=== PATIENT | female | born 1970 | race Caucasian/White ===

== ENCOUNTER 2022-07-24 11:43 | Outpatient (CLI) | payer OTHER, SELFPAY ==
[2022-07-24 15:20] LABS: Cholesterol* 244 mg/dL (90-199); HDL Cholesterol* 77 mg/dL (>=50); LDL Cholesterol Calculated 150 mg/dL (<100); Triglycerides* 86 mg/dL (40-149)
== END 2022-07-24 11:44 | disposition home or self-care (01) ==
PROVIDERS: PCP Family Medicine; Visit Provider Family Medicine
DX: E78.00 Pure hypercholesterolemia, unspecified (principal)
CPT/HCPCS: 80061

== ENCOUNTER 2022-11-12 10:24 | Outpatient (CLI) | payer OTHER, SELFPAY ==
[2022-11-12 14:56] LABS: Albumin* 4.2 g/dL (3.3-5.0)
[2022-11-12 14:57] LABS: Chloride* 108 mmol/L (96-114); Potassium* 4.1 mmol/L (3.6-5.1); Sodium* 138 mmol/L (135-149)
[2022-11-12 14:59] LABS: Alkaline Phosphatase* 84 U/L (40-150); Aspartate Amino Transferase* 19 U/L (12-35); Bilirubin Total* 0.6 mg/dL (0.1-1.5); Carbon Dioxide* 24 mmol/L (20-32); Cholesterol* 230 mg/dL (90-199); Creatinine* 0.8 mg/dL (0.5-1.5); Estimated Glomerular Filt Rate 89 ml/min
[2022-11-12 15:00] LABS: Alanine Aminotransferase* 23 U/L (4-35); Blood Urea Nitrogen* 11 mg/dL (7-30); Calcium* 9.3 mg/dL (8.4-10.6); Glucose* 97 mg/dL (60-115); HDL Cholesterol* 69 mg/dL (>=50); LDL Cholesterol Calculated 134 mg/dL (<100); Triglycerides* 135 mg/dL (40-149)
== END 2022-11-12 10:25 | disposition home or self-care (01) ==
PROVIDERS: PCP Family Medicine; Visit Provider Family Medicine
DX: E78.00 Pure hypercholesterolemia, unspecified (principal); F32.A Depression, unspecified; K21.9 Gastro-esophageal reflux disease without esophagitis; F41.9 Anxiety disorder, unspecified
CPT/HCPCS: 80053; 80061

== ENCOUNTER 2023-02-13 09:09 | Outpatient (CLI) | payer OTHER, SELFPAY | END 2023-02-13 09:10 | disposition home or self-care (01) | LOC: NFLDREF 02-15 04:38 | PROVIDERS: PCP Family Medicine; Referring Provider Family Medicine; Visit Provider Family Medicine | DX: E78.00 Pure hypercholesterolemia, unspecified (principal) | CPT/HCPCS: 80061; 80076 ==

== ENCOUNTER 2023-06-27 08:08 | Outpatient (CLI) | payer OTHER, SELFPAY | END 2023-06-27 08:09 | disposition home or self-care (01) | LOC: NFLDREF 06-28 06:58 | PROVIDERS: PCP Family Medicine; Referring Provider Family Medicine; Visit Provider Family Medicine | DX: E78.00 Pure hypercholesterolemia, unspecified (principal) | CPT/HCPCS: 80061 ==

== ENCOUNTER 2023-07-09 13:19 | Outpatient (CLI) | payer OTHER, SELFPAY | END 2023-07-09 13:20 | disposition home or self-care (01) | PROVIDERS: PCP Family Medicine; Visit Provider Family Medicine | DX: C91.00 Acute lymphoblastic leukemia not having achieved remission (principal); R79.89 Other specified abnormal findings of blood chemistry; Z01.818 Encounter for other preprocedural examination | CPT/HCPCS: 80048; 86769 ==

== ENCOUNTER 2023-09-09 09:18 | Outpatient (CLI) | payer OTHER, SELFPAY | END 2023-09-09 09:19 | disposition home or self-care (01) | LOC: NFLDREF 09-13 12:03 | PROVIDERS: PCP Family Medicine; Referring Provider Family Medicine; Visit Provider Family Medicine | DX: Z00.00 Encounter for general adult medical examination without abnormal findings (principal); E78.00 Pure hypercholesterolemia, unspecified; R79.89 Other specified abnormal findings of blood chemistry; F98.8 Other specified behavioral and emotional disorders with onset usually occurring in childhood and adolescence | CPT/HCPCS: 80053; 80061 ==

== ENCOUNTER 2024-02-25 08:10 | Outpatient (CLI) | payer OTHER, SELFPAY ==
--- OUTSIDE RECORDS SUMMARY | 2024-02-28 11:20 | XMS_ITS | Encounter Summary ---
Author Name Unknown Organization [place] Address [address] [place] [address]. [place] [address] Care Team Providers Care Ticket Chopper Assembler Name Role Phone [facility]- Primary Care Provider Merlin Valdez OD Unavailable [phone] Zhanna Frances MD Unavailable [phone] Reason for Visit * Reason Onset Date Comments medication set up 08/21/2021 Aubagio Encounter Details Date Type Department Care Team (Late st Contact Info) Description 08/21/2021 [facility] Medical Advice [facility] Multiple Sclerosis [address] [address] Zhanna Frances MD [address] [address] medication set up (Aubagio) Social History Tobacco Use Types Packs/Day Years Used Date Smoking Tobacco: Never Smokeless Tobacco: Never Alcohol Use Standard Drinks/Week Comments Yes 0 (1 standard drink = 0.6 oz pur e alcohol) 3 drinks per week PHQ-2 Answer Date Recorded PHQ-2 Score 0 06/15/2021 Sex and Gender Information Value Date Recorded Sex Assigned at Female 07/27/2021 9:16 AM CDT Gender Identity Female 07/27/2021 9:16 AM CDT Sexual Orientation Straight 07/27/2021 9: 16 AM CDT COVID-19 Exposure Response Date Recorded In the last month, have you been in contact with someone who was confirmed or suspected to have Coronavirus / COVID-19? No / Unsure 07/26/2021 3:43 PM CDT documented as of this encounter Miscellaneous Notes * Telephone Encounter - Clarice Horton RN - 08/21/2021 1:58 PM CDT Sasha sent a my chart message inquiring about Aubagio. Per 08/03 virtual visit, Dr. Frances recommended Sasha begin Aubagio. Sent Sasha a my chart asking if start form could be emailed to her. Clarice Horton RN documented in this encounter Plan of Treatment Not on file documented as of this encounter Visit Diagnoses Not on filedocumented in this encounter Care Teams Ticket Chopper Assembler Relationship Specialty Start Date End Date [facility]- [address] [place] [address] PCP - General 06/01/20 Merlin Valdez OD [address] [place] [address] Optometry 01/25/21 Zhanna Frances MD [address] [place] [address] Assigned Neuroscience Provider 06/25/21 02/01/23 documented as of this encounter
--- OUTSIDE RECORDS SUMMARY | 2024-02-28 11:20 | XMS_ITS | Encounter Summary ---
Author Name Unknown Organization [place] Address [address] [place] [address]. [place] [address] Care Team Providers Care Hot Sealing Machine Operator Name Role Phone [facility]- Primary Care Provider Merlin Valdez OD Unavailable [phone] Zhanna Frances MD Unavailable [phone] Reason for Visit * Reason Onset Date Comments Appointment 06/09/2021 Encounter Details Date Type Department Care Team (Late st Contact Info) Description 06/09/2021 Telephone [facility] [address] [place] [address] None Appointment Social History Tobacco Use Types Packs/Day Years Used Date Smoking Tobacco: Never Alcohol Use Standard Drinks/Week Comments Yes 0 (1 standard drink = 0.6 oz pur e alcohol) 3 drinks per week Sex and Gender Information Value Date Recorded Sex Assigned at Female 07/27/2021 9:16 AM CDT Gender Identity Female 07/27/2021 9:16 AM CDT Sexual Orientation Straight 07/27/2021 9: 16 AM CDT documented as of this encounter Miscellaneous Notes * Telephone Encounter - Waleska Wallace MA - 06/13/2021 8:22 AM CDT Scheduled patient for virtual visit on 06/15/2021 at 11am Waleska Wallace MA * Telephone Encounter - Cecilia Warner - 06/09/2021 12:35 PM CDT [facility] Call Center Phone Message May a detailed message be left on voicemail: yes Reason for Call: Appointment Intake Referring Provider Name: Dr. Ceferino Dougherty from [facility]- Diagnosis and/or Symptoms: Abnormal Brain- Patient is being referred to see Dr. Zhanna Frances to rule out MS. Dr. Dougherty requires a 2nd opinion to diagnosis patient with MS. All imaging/records are at [facility] and patient also has copy for records/images. Requires clinic review because dx on protocols. Action Taken: Message routed to: [facility] MS Travel Screening: Not Applicable documented in this encounter Plan of Treatment Not on file documented as of this encounter Visit Diagnoses Not on filedocumented in this encounter Care Teams Hot Sealing Machine Operator Relationship Specialty Start Date End Date [facility]- [address] [place] [address] PCP - General 06/01/20 Merlin Valdez OD [address] [place] [address] Optometry 01/25/21 Zhanna Frances MD [address] [place] [address] Assigned Neuroscience Provider 06/25/21 02/01/23 documented as of this encounter
--- OUTSIDE RECORDS SUMMARY | 2024-02-28 11:20 | XMS_ITS | Clinical Summary ---
Author Name Unknown Organization [employer] [facility] Address [place], [place] [address] Care Team Providers Care Application Packager Name Role Phone Joni Sousa MD Primary Care Provider Allergies Active Allergy Reactions Criticality Noted Date Comments Codeine Nausea And Vomiting 06/26/2010 Medications Medication Sig Dispensed Refills Start Date End Date Status buPROPion SR (WELLBUTRIN SR) 150 mg tablet Take 150 mg by mouth once daily. Active oxycodone-acetami nophen, 5-325 mg, (PERCOCET 5-325) 5-325 mg per tablet Take 1-2 tablets by mouth every 4 hours if needed for Pain. For moderate to severe pain. Max acetaminophen dose: 4000mg in 24 hrs. 30 tablet 0 06/28/2010 Active ibuprofen (ADVIL; MOTRIN) 600 mg tablet Take 1 tablet by mouth every 6 hours. Maximum of 3200 mg in 24 hours. 30 tablet 0 06/28/2010 Active azithromycin (ZITHROMAX) 250 mg tablet Take 2 tabs by mouth on day 1, then take 1 tab daily for 4 days 6 tablet 10/08/2012 Active escitalopram (LEXAPRO) 10 mg tablet Take 1 tablet by mouth once daily. 60 tablet 1 10/08/2012 Active fluconazole (DIFLUCAN) 150 mg tablet Take 1 tablet by mouth one time for 1 dose. 1 tablet 1 10/08/2012 Active lisdexamfetamine (VYVANSE) 30 mg capsule Take 1 capsule by mouth once daily. 30 capsule 01/07/2013 Active ALPRAZolam (XANAX) 0.5 mg tablet Take 0.5-1 tablets by mouth as needed for flying. 6 tablet 01/07/2013 Active lisdexamfetamine (VYVANSE) 30 mg capsule Take 1 capsule by mouth once daily. 30 capsule 02/03/2013 Active lisdexamfetamine (VYVANSE) 30 mg capsule Take 1 capsule by mouth once daily. 30 capsule 03/18/2013 Active buPROPion (WELLBUTRIN SR; ZYBAN) 150 mg Sustained-Release tablet Take 1 tablet by mouth once daily. 90 tablet 04/24/2013 Active escitalopram (LEXAPRO) 10 mg tablet Take 1 tablet by mouth once daily. 30 tablet 1 04/28/2013 Active buPROPion 75 mg tablet Take 1 tablet by mouth once daily. 30 tablet 05/13/2013 Active escitalopram (LEXAPRO) 10 mg tablet Take 1 tablet by mouth once daily. 30 tablet 05/25/2013 Active buPROPion (WELLBUTRIN SR) 150 mg Sustained-Release tablet Take 1 tablet by mouth once daily. 30 tablet 05/25/2013 Active escitalopram (LEXAPRO) 10 mg tablet Take 1 tablet by mouth once daily. 30 tablet 06/30/2013 Active buPROPion (WELLBUTRIN SR; ZYBAN) 150 mg Sustained-Release tablet Take 1 tablet by mouth once daily. 30 tablet 06/30/2013 Active buPROPion (WELLBUTRIN SR) 100 mg Sustained-Release tablet Take 1 tablet by mouth once daily. 30 tablet 07/07/2013 Active buPROPion (WELLBUTRIN SR) 100 mg Sustained-Release tablet Take 1 tablet by mouth once daily. 30 tablet 08/18/2013 Active busPIRone (BUSPAR) 15 mg tablet Take 1 tablet by mouth 2 times daily. 60 tablet 08/18/2013 Active sertraline (ZOLOFT) 50 mg tablet Take 1 tablet(s) by mouth daily 30 Tab 09/09/2013 Active buPROPion (WELLBUTRIN SR) 100 mg Sustained-Release tablet Take 1 tablet by mouth once daily. 30 Tab 3 09/30/2013 Active sertraline (ZOLOFT) 50 mg tablet Take 1 tablet(s) by mouth daily 30 Tab 3 09/30/2013 Active busPIRone (BUSPAR) 15 mg tablet Take 1/2 tablet by mouth daily 30 tablet 11/10/2013 Active buPROPion (WELLBUTRIN SR; ZYBAN) 150 mg Sustained-Release tablet Take 1 tablet by mouth every morning. 30 tablet 2 11/26/2013 Active venlafaxine (EFFEXOR XR) 75 mg cp24 Extended-Release capsule Take 1 capsule by mouth every morning with food 30 Cap 11/26/2013 Active venlafaxine (EFFEXOR XR) 75 mg cp24 Extended-Release capsule Take 1 capsule by mouth every morning with food 30 Cap 3 12/03/2013 Active buPROPion (WELLBUTRIN XL) 150 mg Extended-Release tablet Take 1 tablet by mouth every morning. 90 tablet 12/29/2013 Active venlafaxine (EFFEXOR XR) 150 mg Extended-Release capsule Take 1 cap by mouth every morning 30 capsule 2 02/09/2014 Active buPROPion (WELLBUTRIN SR) 100 mg Sustained-Release tablet Take 2 tabs by mouth in the morning 60 tablet 2 03/25/2014 Active venlafaxine (EFFEXOR XR) 37.5 mg Extended-Release capsule Take 3 caps by mouth daily 90 capsule 2 03/25/2014 Active venlafaxine (EFFEXOR XR) 37.5 mg Extended-Release capsule TAKE 1 CAPSULE BY MOUTH DAILY ALONG WITH VENLAFAXINE XR 75MG CAPSULE (TOTAL DOSE = 112.5MG DAILY) 30 capsule 2 03/25/2014 Active venlafaxine (EFFEXOR XR) 75 mg cp24 Extended-Release capsule TAKE 1 CAPSULE BY MOUTH DAILY ALONG WITH VENLAFAXINE XR 37.5MG CAPSULE (TOTAL DOSE = 112.5MG DAILY) 30 capsule 2 03/25/2014 Active buPROPion (WELLBUTRIN SR) 100 mg Sustained-Release tablet Take 2 tabs by mouth in the morning 60 tablet 4 04/14/2014 Active venlafaxine (EFFEXOR XR) 37.5 mg Extended-Release capsule Take 3 caps by mouth daily 90 capsule 4 04/14/2014 Active benzonatate (TESSALON) 200 mg capsule Take 1 capsule by mouth three times daily as needed for cough 20 capsule 05/24/2014 Active venlafaxine (EFFEXOR XR) 37.5 mg Extended-Release capsule Take 1 cap po w/75 mg cap for total daily dose of 112.5 mg 30 capsule 2 06/29/2014 Active buPROPion (WELLBUTRIN SR; ZYBAN) 150 mg Sustained-Release tablet Take 2 tablets by mouth every morning. 60 tablet 3 07/15/2014 Active venlafaxine (EFFEXOR XR) 75 mg cp24 Extended-Release capsule Take 1 cap daily w/37.5 mg cap for total dose of 112.5 mg 30 capsule 2 07/15/2014 Active ALPRAZolam (XANAX) 0.5 mg tablet Take 1 tablet by mouth before flying if needed 10 tablet 07/15/2014 Active buPROPion (WELLBUTRIN SR; ZYBAN) 150 mg Sustained-Release tablet Take 2 tablets by mouth every morning. 60 tablet 4 08/26/2014 Active venlafaxine (EFFEXOR XR) 37.5 mg Extended-Release capsule Take 1 cap by mouth daily with 75 mg cap for total daily dose of 112.5 mg 30 capsule 4 08/26/2014 Active venlafaxine (EFFEXOR XR) 75 mg cp24 Extended-Release capsule Take 1 cap by mouth daily with 37.5 mg cap for total dose of 112.5 mg 30 capsule 4 08/26/2014 Active buPROPion (WELLBUTRIN SR) 200 mg Sustained-Release tablet Take 1 tablet by mouth once daily in the morning 30 tablet 3 10/12/2014 Active venlafaxine (EFFEXOR XR) 37.5 mg Extended-Release capsule Take 1 cap by mouth every morning 30 capsule 3 12/16/2014 Active ALPRAZolam (XANAX) 0.5 mg tablet Take 1 tablet by mouth before flying as needed. 10 tablet 12/21/2014 Active fluconazole (DIFLUCAN) 150 mg tablet Take 1 tab by mouth once at end of antibiotic course 1 tablet 1 01/03/2015 Active ciprofloxacin HCl (CIPRO) 500 mg tablet Take 1 tablet by mouth every 12 hours for 7 days 14 tablet 01/03/2015 Active buPROPion (WELLBUTRIN SR) 200 mg Sustained-Release tablet Take 1 tablet by mouth every morning 30 tablet 3 01/27/2015 Active venlafaxine (EFFEXOR XR) 37.5 mg Extended-Release capsule Take 2 capsules by mouth every morning 60 capsule 3 01/27/2015 Active escitalopram oxalate (LEXAPRO) 10 mg tablet Take 1 tablet (10 mg) by mouth daily 30 tablet 2 03/16/2015 Active buPROPion (WELLBUTRIN SR) 150 mg Sustained-Release tablet Take 1 tablet by mouth every morning 30 tablet 2 06/23/2015 Active sertraline (ZOLOFT) 50 mg tablet Take 1 tablet by mouth every morning with meals 30 tablet 2 08/30/2015 Active buPROPion (WELLBUTRIN SR) 200 mg Sustained-Release tablet Take 1 tablet by mouth every morning 30 tablet 2 09/27/2015 Active sertraline (ZOLOFT) 50 mg tablet Take 1 tablet by mouth every morning with meals 90 tablet 2 10/25/2015 Active buPROPion (WELLBUTRIN SR) 150 mg Sustained-Release tablet Take 1 tablet by mouth twice a day 180 tablet 2 10/25/2015 Active buPROPion (WELLBUTRIN SR) 150 mg Sustained-Release tablet Take 1 tablet by mouth twice a day 60 tablet 2 11/22/2015 Active sertraline (ZOLOFT) 50 mg tablet Take 1 tablet by mouth every morning with meals 30 tablet 2 11/22/2015 Active sertraline (ZOLOFT) 50 mg tablet Take 1 tablet by mouth every morning with meals 30 tablet 2 01/23/2016 Active buPROPion (WELLBUTRIN SR) 150 mg Sustained-Release tablet Take 1 tablet by mouth twice a day 60 tablet 2 01/23/2016 Active trimethoprim-sulf amethoxazole, 160-800 mg, (BACTRIM DS) tablet Take 1 tablet(s) by mouth every 12 hours 20 tablet 05/29/2016 Active amoxicillin (AMOXIL) 875 mg tablet Take 1 tablet by mouth 2 times daily for 5 days.Take a probiotic while taking antibiotics. 10 tablet 11/20/2017 Active fluconazole (DIFLUCAN) 150 mg tablet TAKE 1 TABLET BY MOUTH ONE TIME for yeast infection symptoms after antibiotic use. 1 tablet 11/20/2017 Active ALPRAZolam (XANAX) 0.5 mg tablet Take 1 tablet by mouth prior to flying 10 tablet 12/16/2017 Active Social History Tobacco Use Types Packs/Day Years Used Date Smoking Tobacco: Never Assessed Sex and Gender Information Value Date Recorded Sex Assigned at Not on file Gender Identity Not on file Sexual Orientation Not on file Obstetrics History Last Filed Vital Signs Vital Sign Reading Time Taken Comments Blood Pressure 123/81 05/15/2021 2:15 PM CDT Pulse 86 05/15/2021 2:15 PM CDT Temperature 37.2 ??C (99 ??F) 06/28/2010 11:00 AM CDT Respiratory Rate 18 05/15/2021 2:15 PM CDT Oxygen Saturation 98% 05/15/2021 2:15 PM CDT Inhaled Oxygen Concentration - - Weight 65.9 kg (145 lb 4.5 oz) 06/27/2010 9:35 A M CDT Height 170.2 cm (5' 7) 06/27/2010 9:35 AM CDT Body Mass Index 22.75 06/27/2010 9:35 AM CDT Plan of Treatment Health Maintenance Due Date Last Done Comments Tdap 1982 Depression screening for age 12+ 1983 HIV for age 15-65 1986 BMI (ht and wt on same day) for age 18+ 1989 Hepatitis C screening for ag e 18-79 1989 Tetanus booster 1991 Pap test for age 21-65 1992 Colonoscopy through age 75 2016 Lipids for age 45-75 2016 Mammogram for age 45-75 2016 Zoster (shingles) series for age 50+ (1 of 2) 2021 COVID-19 vaccine series ( - 2022-24 season) 2023 Influenza for age 50-64 06/28/2024 Pneumococcal series for age 6-64 Aged Out No longer eligible based on patient's age to complete this topic Advance Directives * Full Code (Latest Code Status on File) Date Activated Date Inactivated Comments 06/27/2010 1:58 PM 06/28/2010 5:11 PM * Full Code Date Activated Date Inactivated Comments 06/27/2010 9:34 AM 06/27/2010 1:58 PM Care Teams Application Packager Relationship Specialty Start Date End Date Joni Sousa MD [address] [place] [address] PCP - General Family Practice 12/12/20
--- OUTSIDE RECORDS SUMMARY | 2024-02-28 11:20 | XMS_ITS | Referral Summary ---
Author Name Unknown Organization [facility] Address [address] [place] [address] Care Team Providers Care Mortar Mixer Operator Name Role Phone [facility]- Primary Care Provider Merlin Valdez OD Unavailable [phone] Allergies Active Allergy Reactions Criticality Noted Date Comments Codeine 06/15/2021 Morphine Nausea and Vomiting 08/26/2017 Medications Medication Sig Dispensed Refills Start Date End Date Status BusPIRone HCl (BUSPAR PO) Take 10 mg by mouth daily Active BuPROPion HCl (WELLBUTRIN PO) Take 100 mg by mouth 2 times daily Active VYVANSE 30 MG capsule daily 06/11/2021 Act tyrese topiramate (TOPAMAX) 100 MG tablet At Bedtime 04/18/2021 Active vitamin D3 (CHOLECALCIFEROL) 50 mcg (2000 units) tablet Take 1 tablet by mouth daily Active Social History Tobacco Use Types Packs/Day Years Used Date Smoking Tobacco: Never Smokeless Tobacco: Never Alcohol Use Standard Drinks/Week Comments Yes 0 (1 standard drink = 0.6 oz pur e alcohol) 3 drinks per week PHQ-2 Answer Date Recorded PHQ-2 Score 0 06/15/2021 Adolescent Education Answer Date Record ed Getting School Help Needed Not on file 07/28 Sex and Gender Information Value Date Recorded Sex Assigned at Female 07/27/2021 9:16 AM CDT Gender Identity Female 07/27/2021 9:16 AM CDT Sexual Orientation Straight 07/27/2021 9: 16 AM CDT Last Filed Vital Signs Vital Sign Reading Time Taken Comments Blood Pressure 127/91 06/21/2021 2:57 PM CDT Pulse 97 06/21/2021 2:57 PM CDT Temperature 36.9 ??C (98.4 ??F) 08/26/2017 9:46 AM CD T Respiratory Rate 20 08/26/2017 9:46 AM CDT Oxygen Saturation 98% 06/21/2021 2:57 PM CDT Inhaled Oxygen Concentration - - Weight 78.9 kg (174 lb) 06/21/2021 2:57 PM CDT Height 170.2 cm (5' 7) 08/26/2017 9:46 AM CDT Body Mass Index 27.25 08/26/2017 9:46 AM CDT Plan of Treatment Not on file Procedures Procedure Name Priority Date/Time Associated Diagnosis Comments MA SCREENING BILATERAL W/ SHILO Routine 02/05/2023 9:30 AM CDT Visit for screening mammogram BASIC METABOLIC PANEL STAT 08/26/2017 10:05 AM CDT from Last 3 Months or Most Recently Relevant to Health Maintenance Results * MA Screening Bilateral w/ Shilo (02/05/2023 9:30 AM CDT) Anatomical Region Laterality Modality Breast Bilateral Mammography Impressions 02/05/2023 9:50 AM CDT IMPRESSION: ACR BI-RADS Category 1: Negative RECOMMENDED FOLLOW-UP: Annual routine screening mammogram The results and recommendations of this examination will be communicated to the patient. Brenton Hahn MD Narrative 02/05/2023 9:50 AM CDT BILATERAL FULL FIELD DIGITAL SCREENING MAMMOGRAM WITH TOMOSYNTHESIS Performed on: 02/05/23 Compared to: 09/06/2021, 06/09/2020, and 12/15/2018 Technique: ??This study was evaluated with the assistance of Computer-Aided Detection. ??Breast Tomosynthesis was used in interpretation. Findings: The breasts have scattered areas of fibroglandular density. ?? There is no radiographic evidence of malignancy. Joni Sousa MD IMG MAMMOGRAPHY [facility] * Basic metabolic panel (08/26/2017 10:05 AM CDT) Sodium 138 133 - 144 mmol/L 08/26/2017 10:55 AM [facility] Potassium 3.7 3.4 - 5.3 mmol/L 08/26/2017 10:55 AM [facility] Chloride 105 94 - 109 mmol/L 08/26/2017 10:55 AM [facility] Carbon Dioxide 26 20 - 32 mmol/L 08/26/2017 10:55 AM [facility] Anion Gap 7 3 - 14 mmol/L 08/26/2017 10:55 AM [facility] Glucose 91 70 - 99 mg/dL 08/26/2017 10:55 AM [facility] Urea Nitrogen 10 7 - 30 mg/dL 08/26/2017 10:55 AM [facility] Creatinine 0.78 0.52 - 1.04 mg/dL 08/26/2017 10:55 AM [facility] GFR Estimate 80 >60 mL/min/1.7 m2 08/26/2017 10:55 AM [facility] Comment:Non GFR Calc GFR Estimate If Black >90 >60 mL/min/1.7 m2 08/26/2017 10:55 AM [facility] Comment: GFR Calc Calcium 8.8 8.5 - 10.1 mg/dL 08/26/2017 10:55 AM [facility] Blood specimen (specimen) 08/26/2017 10:05 AM CDT 08/26/2017 10:32 AM T Kavon Ghosh MD LAB - BLOOD [facility] [address] [place] [address], [facility] [phone] from Last 3 Months or Most Recently Relevant to Health Maintenance Care Teams Mortar Mixer Operator Relationship Specialty Start Date End Date [facility]- [address] [place] [address] PCP - General 06/01/20 Merlin Valdez, KAYLYNN [address] [place] [address] Optometry 01/25/21
--- OUTSIDE RECORDS SUMMARY | 2024-02-28 11:20 | XMS_ITS | Clinical Summary ---
Author Name Unknown Organization [place] Address [address] [place] [address] Care Team Providers Care Colored Liquid Plastic Applier Name Role Phone [facility]- Primary Care Provider Merlin Valdez OD Unavailable [phone] Allergies Active Allergy Reactions Criticality Noted Date [...] 08/26/2017 9:46 AM CDT Plan of Treatment Health Maintenance Due Date Last Done Comments ADVANCE CARE PLANNING 1971 ANNUAL REVIEW OF HM ORDERS 1971 CT COLONOGRAPHY 1971 FIT 1971 FLEX SIG 1971 YEARLY PREVENTIVE VISIT 1971 sDNA (Cologuard) 1971 COLONOSCOPY 1981 COLORECTAL CANCER SCREENING 1981 HIV SCREENING 1986 HEPATITIS C SCREENING 1989 HEPATITIS B IMMUNIZATION (1 of 3 - 19+ 3-dose series) 1990 PAP 1992 LIPID 2011 GLUCOSE 08/26/2020 08/26/2017 ZOSTER IMMUNIZATION (1 of 2) 2021 COVID-19 Vaccine (1 - 2022- season) 2023 INFLUENZA VACCINE (#1) 2023 PHQ-2 (once per calendar year) 2023 06/15/2021 MAMMO SCREENING 02/05/2025 02/05/2023, 08/28, 06/09/2020, Additional history exists DTAP/TDAP/TD IMMUNIZATION (2 - Td or Tdap) 10/16/2031 10/16/2021, 05/23/2005, 05/23/2005 HPV IMMUNIZATION Aged Out No longer e ligible based on patient's age to complete this topic IPV IMMUNIZATION Aged Out No longer e ligible based on patient's age to complete this topic MENINGITIS IMMUNIZATION Aged Out No l onger eligible based on patient's age to complete this topic Pneumococcal Vaccine: Pediatrics (0 to 5 Years) and At-Risk Patients (6 to 64 Years) Aged Out No longer eligible based on patient's age to complete this topic RSV MONOCLONAL ANTIBODY Aged Out No l onger eligible based on patient's age to complete this topic Procedures Procedure Name Priority Date/Time Associated Diagnosis [...] radiographic evidence of malignancy. Joni Sousa MD G MAMMOGRAPHY [facility] * Basic metabolic panel (08/26/2017 10:05 AM CDT) Sodium 138 133 - 144 mmol/L 08/26/2017 10:55 AM CDT [facility] Potassium 3.7 3.4 - 5.3 mmol/L 08/26/2017 10:55 AM CDT [facility] Chloride 105 94 - 109 mmol/L 08/26/2017 10:55 AM CDT [facility] Carbon Dioxide 26 20 - 32 mmol/L 08/26/2017 10:55 AM CDT [facility] Anion Gap 7 3 - 14 mmol/L 08/26/2017 10:55 AM CDT [facility] Glucose 91 70 - 99 mg/dL 08/26/2017 10:55 AM CDT [facility] Urea Nitrogen 10 7 - 30 mg/dL 08/26/2017 10:55 AM CDT [facility] Creatinine 0.78 0.52 - 1.04 mg/dL 08/26/2017 10:55 AM CDT [facility] GFR Estimate 80 >60 mL/min/1.7 m2 08/26/2017 10:55 AM T [facility] Comment:Non GFR Calc GFR Estimate If Black >90 >60 mL/min/1.7 m2 08/26/2017 10:55 AM T [facility] Comment: GFR Calc Calcium 8.8 8.5 - 10.1 mg/dL 08/26/2017 10:55 AM T [facility] Blood specimen (specimen) 08/26/2017 10:05 AM CDT 08/26/2017 10:32 AM CDT Kavon Ghosh MD LAB - BLOOD [facility] Organization Address City/State/ZIP Co de Phone Number [facility] [address] [place], [place] [address] [phone] from Last 3 Months or Most Recently Relevant to Health Maintenance Care Teams Colored Liquid Plastic Applier Relationship Specialty Start Date End Date [facility]- [address] [place] [address] PCP - General 06/01/20 Merlin Valdez, KAYLYNN [address] [place] [address] Optometry 01/25/21
== END 2024-02-25 08:11 | disposition home or self-care (01) ==
LOC: NFLDREF 02-28 11:19
PROVIDERS: PCP Family Medicine; Referring Provider Family Medicine; Visit Provider Family Medicine
DX: E78.00 Pure hypercholesterolemia, unspecified (principal); R53.83 Other fatigue; R10.9 Unspecified abdominal pain; Z13.21 Encounter for screening for nutritional disorder; Z13.29 Encounter for screening for other suspected endocrine disorder
CPT/HCPCS: 80053; 80061; 82306; 83690; 84443

== ENCOUNTER 2024-08-18 09:05 | Outpatient (CLI) | payer BC, SELFPAY ==
--- OUTSIDE RECORDS SUMMARY | 2024-08-20 11:15 | XMS_ITS | Clinical Summary ---
Author Organization [employer] [facility] [employer] Address [place], [place] [address] Care Team Providers Care Order Processing Specialist Name Role Phone Joni Sousa MD Primary Care Provider [phone] Allergies Active Allergy Reactions Criticality Noted Date [...] (1 of 2) 2021 COVID-19 vaccine series (2023- season) 2024 Influenza for age 50-64 06/28/2024 Pneumococcal series for age 6-64 Aged Out No longer eligible based on patient's age to complete this topic Advance Directives * Full Code (Latest Code Status on File) Date Activated Date Inactivated Comments 06/27/2010 1:58 PM 06/28/2010 5:11 PM * Full Code Date Activated Date Inactivated Comments 06/27/2010 9:34 AM 06/27/2010 1:58 PM Care Teams Order Processing Specialist Relationship Specialty Start Date End Date Joni Sousa MD [address] [place] [address] PCP - General Family Practice 12/12/20
== END 2024-08-18 09:06 | disposition home or self-care (01) ==
LOC: NFLDREF 08-20 11:13
PROVIDERS: PCP Family Medicine; Referring Provider Family Medicine; Visit Provider Family Medicine
DX: E78.00 Pure hypercholesterolemia, unspecified (principal); E55.9 Vitamin D deficiency, unspecified
CPT/HCPCS: 80053; 80061; 82306

== ENCOUNTER 2025-01-27 08:20 | Outpatient (CLI) | payer BC, SELFPAY | END 2025-01-27 08:21 | disposition home or self-care (01) | LOC: NFLDREF 01-30 20:03 | PROVIDERS: PCP Family Medicine; Referring Provider Family Medicine; Visit Provider Family Medicine | DX: E78.00 Pure hypercholesterolemia, unspecified (principal); Z13.1 Encounter for screening for diabetes mellitus | CPT/HCPCS: 80053; 80061 ==

== ENCOUNTER 2025-02-04 09:07 | Outpatient (CLI) | payer BC, SELFPAY ==
--- NOTE | 2025-02-04 09:15 | CRLHL7_ITS ---
For Patients: As a result of the Century Cures Act, medical imaging exams and procedure reports are released immediately into your electronic medical record. You may view this report before your referring provider. If you have questions, please contact your health care provider. INDICATION: Unspecified abdominal pain TECHNIQUE: Conventional two-dimensional grayscale ultrasound of the right upper quadrant. COMPARISON: None FINDINGS: The gallbladder is normal, with no evidence of stones. No gallbladder wall thickening or pericholecystic fluid is demonstrated. The patient is reportedly not tender over the gallbladder. No biliary ductal dilation is evident. The common bile duct measures 3 mm. The liver is unremarkable except for a simple 1.8 cm right lobe cyst. The pancreas is within normal limits. The right kidney is unremarkable. The visualized portion of the abdominal aorta and inferior vena cava are negative. IMPRESSION: 1. Normal gallbladder and bile ducts. 2. Simple 1.8 cm liver cyst. Dictated by Channing Kimball MD @ 02/04/2025 1:14:16 PM (Electronically Signed)
== END 2025-02-04 09:08 | disposition home or self-care (01) ==
LOC: US 09:08
PROVIDERS: PCP Family Medicine; Visit Provider Family Medicine
DX: R10.9 Unspecified abdominal pain (principal); K76.89 Other specified diseases of liver
CPT/HCPCS: 76705

== ENCOUNTER 2025-08-16 13:03 | Outpatient (CLI) | payer BC, SELFPAY | END 2025-08-16 13:04 | disposition home or self-care (01) | LOC: NFLDREF 08-19 19:08 | PROVIDERS: PCP Family Medicine; Referring Provider Family Medicine; Visit Provider Family Medicine | DX: N39.0 Urinary tract infection, site not specified (principal) | CPT/HCPCS: 87086 ==

== ENCOUNTER 2025-10-05 11:18 | Outpatient (CLI) | payer BC, SELFPAY | END 2025-10-05 11:19 | disposition home or self-care (01) | LOC: NFLDREF 10-11 18:45 | PROVIDERS: PCP Family Medicine; Referring Provider Family Medicine; Visit Provider Physician Assistant Medical | DX: R10.84 Generalized abdominal pain (principal) | CPT/HCPCS: 87086 ==